=== PATIENT | female | born 1980 | race Two or more races ===

== ENCOUNTER 2017-01-16 15:40 | Emergency (ER) | payer BC, MEDICAID ==
[~2017-01-16] VITALS: Ht 154.9 cm; Wt 68.0 kg
[2017-01-16] MEDS ORDERED: IV SET PRIMARY 1 EA INFUS.SET MC ONE (15:57)
[2017-01-16] MEDS ORDERED: IV NS 0.9% 1,000 ML ONE (15:57)
[2017-01-16] MEDS ORDERED: IV NS 0.9% 1,000 ML BAG IV ONE (16:00)
[2017-01-16 16:08] LABS: BASOPHILS # (AUTO) 0.1 /CMM (0.0-0.2); BASOPHILS % (AUTO) 1.2 % (0.0-2.0); EOSINOPHILS % (AUTO) 0.2 % (0.0-6.0); HEMATOCRIT 45 % (33-45); HEMOGLOBIN 15.7 g/dL (11.5-14.8); LYMPHOCYTES # (AUTO) 3.1 /CMM (0.8-4.8); LYMPHOCYTES % (AUTO) 46.1 % (20.0-44.0); MEAN CORPUSCULAR HEMOGLOBIN 33 PG (26.0-33.0); MEAN CORPUSCULAR HGB CONC 35 g/dl (31.0-36.0); MEAN CORPUSCULAR VOLUME 95 fL (82-100); MONOCYTES # (AUTO) 0.3 /CMM (0.1-1.30); MONOCYTES % (AUTO) 3.8 % (2.0-12.0); NEUTROPHILS # (AUTO) 3.3 /CMM (1.8-8.9); NEUTROPHILS % (AUTO) 48.7 % (43.0-81.0); PLATELET COUNT (AUTO) 330 /CMM (150-450); RDW COEFFICIENT OF VARIATION 12.4 (11.5-15.0); RED BLOOD CELL COUNT(AUTO) 4.79 MIL/uL (4.0-5.2); WHITE BLOOD COUNT (AUTO) 6.8 K/uL (4.3-11.0)
--- NOTE | 2017-01-16 16:09 | NUR ---
PT BIB FAMILY C/O "ALCOHOL WITHDRAWAL". NO S/SZ WITHDRAWAL NOTED; NO SZ ACITIVTY. SKIN WARM NONDIAPHORETIC. RESP EVEN UNLABORED. NAD NOTED. A/OX4. PT REPORTS LAST DRINK THIS AM. USUAL INTAKE 1 PINT PER DAY. IN ER BED 14.
[2017-01-16 16:17] LABS: CALCIUM, SERUM 8.8 mg/dL (8.5-10.1); CREATININE 0.7 mg/dL (0.6-1.3); POTASSIUM 3.8 mmol/L (3.5-5.1)
[2017-01-16 16:21] LABS: APPEARANCE,URINE Clear (CLEAR); BILIRUBIN,URINE Negative (NEGATIVE); BLOOD, URINE Small Ery/uL (NEGATIVE); COLOR,URINE Yellow (YELLOW); KETONES,URINE Negative (NEGATIVE); LEUKOCYTE ESTERASE ,URINE Negative (NEGATIVE); NITRITE, URINE Negative (NEGATIVE); PROTEIN,URINE 30 mg/dl (NEGATIVE); UGLUCOSE Negative (NEGATIVE); UROBILINOGEN,URINE 0.2 EU/dL (0.2)
[2017-01-16 16:24] LABS: PREGNANCY TEST URINE QUAL NEGATIVE (NEGATIVE)
[2017-01-16 16:24] LABS: ALBUMIN 4.6 g/dL (3.4-5.0); BILIRUBIN,DIRECT 0.1 mg/dL (0.0-0.2); BILIRUBIN,TOTAL 0.4 mg/dL (0.2-1.0); SALICYLATE 4.3 mg/dL (2.8-20.0); TOTAL PROTEIN, SERUM 8.2 g/dL (6.4-8.2)
[2017-01-16 16:31] LABS: WBC,URINE 0-2 /HPF (0-3)
[2017-01-16 16:32] LABS: ADD URINE CULTURE NO; BACTERIA,URINE None seen /HPF (None Seen); SQUAMOUS EPITHELIAL CELL,UR Few /HPF (None Seen)
--- NOTE | 2017-01-16 16:34 | NUR ---
CALLED [facility] FOR PSYCH EVAL ETA 1800
[2017-01-16 16:35] LABS: CANNABINOID, URINE POSITIVE (NEGATIVE); PHENCYCLIDINE SCREEN,URINE NEGATIVE (NEGATIVE)
--- NOTE | 2017-01-16 16:53 | NUR ---
CALLED [facility], SPOKE WITH REMA TO VERIFY SHE HAS A BED RESERVED WHAT THE FAMILY CLAIM.REMA SAID THAT SHE DID TRY TO CALL THEM MANY TIMES BUT THEY ARE NOT CONTRACTED WITH HER INSURANCE.
--- NOTE | 2017-01-16 17:54 | NUR ---
REPORT GIVEN TO TAYA RAMIREZ FOR [facility]. NAD NOTED. RESTING COMFORTABLY, ALL NEEDS ATTENDED TO. AWAITING JENNIFER TOLBERT.
[2017-01-16 18:40] VITALS: BP 125/88
--- NOTE | 2017-01-16 18:45 | NUR ---
IV removed. Catheter intact and site benign. Pressure and 4x4 applied to site. No bleeding noted.Patient discharged to in stable condition with family.. Written and verbal after care instructions given. Patient verbalizes understanding of instruction.
== END 2017-01-16 18:47 | disposition home or self-care (01) ==
LOC: ER 15:42
DX: F10.239 Alcohol dependence with withdrawal, unspecified (principal); F32.9 Major depressive disorder, single episode, unspecified; F17.210 Nicotine dependence, cigarettes, uncomplicated
CPT/HCPCS: 36415; 80048; 80076; 80305; 80329; 81001; 84703; 85025; 96360; 99284; A4606; G0480 ×2; J7030; Z7610; 81000-TC; G6039-TC